=== PATIENT | female | born 1955 | race African-American/Black ===

== ENCOUNTER 2018-03-26 13:07 | Emergency (ER) | payer OTHER ==
[~2018-03-26] VITALS: Ht 160 cm; Wt 85.0 kg
[~2018-03-26 13:07] MED LIST: AMARYL1 MG PO; ASPIRIN EC325 MG PO; ASPIRIN325 MG PO; CELECOXIB200 MG PO; ENDOCET 5-3251 EACH PO; GLUCOPHAGE500 MG PO; PERCOCET 10/1 TABLET PO; ZESTRIL40 MG PO; ZOCOR20 MG PO
[2018-03-26 14:28] VITALS: BP 138/65
== END 2018-03-26 14:31 | disposition home or self-care (01) ==
LOC: EME 13:07
PROC: 09C47ZZ Extirpation of Matter from Left External Auditory Canal, Via Natural or Artificial Opening (ICD-10-PCS; principal; 2018-03-26)
DX: H92.02 Otalgia, left ear (principal); T16.2XXA Foreign body in left ear, initial encounter; X58.XXXA Exposure to other specified factors, initial encounter; E11.9 Type 2 diabetes mellitus without complications; Z79.84 Long term (current) use of oral hypoglycemic drugs
CPT/HCPCS: 99281; 99283